=== PATIENT | female | born 1980 | race Caucasian/White ===

== ENCOUNTER → 2017-05-03 07:57 | Emergency (ER) | payer BC ==
[~2017-05-03 07:57] MED LIST: Azithromycin TAB* 250 MG PO ONE; Iohexol 300* (CONTRAST) 10 ML SDV IV ONE; Ketorolac INJ* 30 MG/ML 1 ML VIAL IV PUSH ONE; Ketorolac INJ* 30 MG/ML 1 ML VIAL ONE; NS 0.9% 1000 ML* 1,000 ML IV ONE; Neomyc/Polym/HC 1% OTIC SUSP* **OTIC LEFT EAR ONE; Ondansetron INJ* 2 MG/ML VIAL IV ONE
[2017-05-03 08:58] LABS: Hematocrit 42 % (35-47); Hemoglobin 14.3 g/dl (12.0-16.0); Mean Corpuscular HGB Conc 34 g/dl (31-36); Mean Corpuscular Hemoglobin 30 pg (27-31); Mean Corpuscular Volume 90 fL (80-97); Mean Platelet Volume 10 um3 (7.4-10.4); Red Blood Count 4.69 10^6/ul (4.0-5.4); Red Cell Distribution Width 14 % (10.5-15); White Blood Count 8.7 10^3/ul (3.5-10.8)
[2017-05-03 09:14] LABS: ALT 11 U/L (7-52); AST 17 U/L (13-39); Albumin 4.3 g/dL (3.2-5.2); Alkaline Phosphatase 53 U/L (34-104); Amylase 45 U/L (29-103); Anion Gap 6 mmol/L (2-11); Blood Urea Nitrogen 16 mg/dL (6-24); CO2 Carbon Dioxide 26 mmol/L (22-32); Calcium 9.2 mg/dL (8.6-10.3); Chloride 106 mmol/L (101-111); Creatine Kinase 85 U/L (10-223); EGFR African American 81.1 (>60); EGFR Non-African American 63.1 (>60); Globulin 2.5 g/dL (2-4); Glucose 87 mg/dL (70-100); Lipase 34 U/L (11.0-82.0); Potassium 3.8 mmol/L (3.5-5.0); Sodium 138 mmol/L (133-145); Total Protein 6.8 g/dL (6.4-8.9)
[2017-05-03 09:21] LABS: Benzodiazepine Urine Screen None Detected (None Detect)
[2017-05-03 09:28] LABS: Urine Bilirubin Negative (Negative); Urine Glucose Negative (Negative); Urine Nitrite Negative (Negative)
--- NOTE | 2017-05-03 09:28 | RAD ---
INDICATION: Syncope COMPARISON: April 16, 2016 TECHNIQUE: An AP portable view obtained at 0845 hours is submitted. FINDINGS: Bones/Soft Tissues: There are no acute bony findings. Cardiomediastinal: The cardiomediastinal silhouette is normal. Lungs: There are no infiltrates. Pleura: There are no pleural effusions. Other: None IMPRESSION: NO ACTIVE DISEASE.
[2017-05-03 09:32] LABS: Alcohol < 10 mg/dL (<10)
[2017-05-03 09:35] LABS: Urine Bacteria Absent (Absent)
[2017-05-03 09:42] LABS: TSH (Thyroid Stimulating Horm) 1.66 mcIU/mL (0.34-5.60)
--- NOTE | 2017-05-03 12:55 | RAD ---
INDICATION: Epigastric pain COMPARISON: None TECHNIQUE: Axial source images were obtained from the hemidiaphragms to the symphysis pubis following administration of oral and intravenous contrast. 85 mL Omnipaque 300 was utilized. Coronal and sagittal reconstructed images were acquired. Lung bases: The lung bases are clear. Liver: The liver is normal in size. There are no masses. There is no ductal dilatation. Gallbladder: There are no calcified gallstones. There is no evidence of wall thickening or pericholecystic fluid. Spleen: The spleen is normal in size. There are no masses. Pancreas: There is no focal pancreatic mass or ductal dilatation. Adrenal glands: There is no evidence of adrenal mass. Kidneys: The kidneys are normal in size and position. There are prompt nephrograms and there is prompt excretion bilaterally. There are no renal parenchymal masses. There is no evidence of nephrolithiasis. Adenopathy: There is no evidence of adenopathy by size criteria. Fluid collections: There are no significant free or localized fluid collections. Vessels:There are no significant atherosclerotic changes involving the aorta. There is no focal aneurysm. The iliac vessels are normal in caliber. The IVC appears normal. GI tract: There are no acute CT bowel findings. There is no obstruction. The stomach and small bowel appear normal. The lower GI tract is normal. The cecum, ileocecal valve, and terminal ileum appear normal. The appendix is visualized and appear normal. Pelvic organs: The uterus and adnexa appear normal Bladder: There are no bladder masses. Abdominal and pelvic soft tissues: The extraperitoneal abdominal and pelvic soft tissues appear normal.. Osseous structures: There are no acute osseous findings. Other: None IMPRESSION: NO ACUTE CT FINDINGS. NO MASS OR INFLAMMATORY CHANGES.
[2017-05-03 14:43] VITALS: BP 97/67
--- NOTE | 2017-05-03 22:09 | ED ---
Yaya Wallace Alfonso, scribed for Esther Bates MD on 05/03/17 at 0928 . Syncope/Near Syncope - HPI Summary HPI Summary: This patient is a 36 year old F presenting to [facility] accompanied by mother with a chief complaint of syncopal episode at 0700 this morning. She states I think this was Vasovagal and I passed out on the floor while in the bathroom and laid there for 45 minutes. She denies head trauma. Pt rates the pain 0/10 in severity. Symptoms aggravated by nothing and alleviated by spontaneous resolution. Pt reports dizziness, left ear pain, and upper abdominal pain described as taking a knife and jamming it into my stomach. Pt denies LOC, fever, constipation, sore throat, and back pain. She states she is currently experiencing her menstrual cycle. Pt just returned from vacation where she did a lot of swimming. Denies recent flights. FHx of CAD and esophageal cancer and melanoma. - History Of Current Complaint Chief Complaint: EDAbdPain Time Seen by Provider: 05/03/17 08:06 Hx Obtained From: Patient Onset/Duration: Sudden Onset - 0700 today, Lasting Minutes - 45 minutes on floor , Resolved Timing: Constant Context: Unwitnessed Activity At Onset: At Rest Associated Head Trauma: No Aggravating Factor(s): Nothing Alleviating Factor(s): Spontaneous Resolution Associated Signs And Symptoms: Other - Positive dizziness, left ear pain, and upper abdominal pain; Negative LOC, fever, constipation, sore throat, and back pain. Frequency: Episodes x___ - 1, Episodes Lasting ____ (in Mins/Days/Weeks/Years) - 45 minutes - Allergies/Home Medications Allergies/Adverse Reactions: Allergies Allergy/AdvReac Type Severity Reaction Status Date / Time NARCOTIC SENSITIVE Allergy Severe SENSITIVE Uncoded 05/03/17 10:32 TO NARCOTICS - VOMITING PMH/Surg Hx/FS Hx/Imm Hx Previously Healthy: Yes Endocrine/Hematology History: Denies: Hx Diabetes, Hx Thyroid Disease Cardiovascular History: Denies: Hx Hypertension Respiratory History: Denies: Hx Asthma, Hx Chronic Obstructive Pulmonary Disease (COPD) GI History: Denies: Hx Ulcer - Cancer History Hx Chemotherapy: No Hx Radiation Therapy: No Infectious Disease History: No Infectious Disease History: Denies: Hx Clostridium Difficile, Hx Hepatitis, Hx Human Immunodeficiency Virus (HIV), Hx of Known/Suspected MRSA, Hx Shingles, Hx Tuberculosis, Traveled Outside the [place] in Last 30 Days - Family History Known Family History: Positive: Cardiac Disease, Other - esophageal cancer - Social History Occupation: Employed Full-time Lives: With Family Alcohol Use: Occasionally Substance Use Type: Reports: None Smoking Status (MU): Never Smoked Tobacco Review of Systems Negative: Fever Positive: Ear Ache - Left. Negative: Sore Throat Cardiovascular: Negative Respiratory: Negative Positive: Abdominal Pain - Upper, Other - Negative constipation Positive: Other - Negative back pain or neck pain Neurological: Other - Positive dizziness; negative LOC Positive: Syncope All Other Systems Reviewed And Are Negative: Yes Physical Exam Triage Information Reviewed: Yes Vital Signs On Initial Exam: Initial Vitals Temp Pulse Resp BP 97.4 F 73 20 109/70 05/03/17 07:58 05/03/17 07:58 05/03/17 07:58 05/03/17 07:58 Vital Signs Reviewed: Yes Appearance: Positive: Well-Nourished, Ill-Appearing, Pain Distress Skin: Positive: Warm, Skin Color Reflects Adequate Perfusion Head/Face: Positive: Normal Head/Face Inspection Eyes: Positive: Other: - Left ear erythematous and swollen canal. Left ear painful with movement. ENT: Positive: Normal ENT inspection, TM red - left TM, and left canal swollen and painful Neck: Positive: Supple, Nontender, No Lymphadenopathy Respiratory/Lung Sounds: Positive: Clear to Auscultation, Breath Sounds Present Cardiovascular: Positive: RRR, Pulses are Symmetrical in both Upper and Lower Extremities. Negative: Murmur, Leg Edema Left, Leg Edema Right Abdomen Description: Positive: No Organomegaly, Soft, Other: - Tender suprapubic with no rebound.. Negative: Distended, Guarding, McBurney's Point Tenderness, Peritoneal Signs Bowel Sounds: Positive: Present Musculoskeletal: Positive: Strength/ROM Intact. Negative: Yvette Sign Left, Yvette Sign Right, Edema Left, Edema Right Neurological: Positive: Sensory/Motor Intact, Alert, Oriented to Person Place, Time, CN Intact II-III, Speech Normal. Negative: Focal Deficit @, Slurred Speech Psychiatric: Positive: Normal - Mercedes Coma Scale Coma Scale Total: 15 Diagnostics - Vital Signs Vital Signs Temp Pulse Resp BP Pulse Ox 05/03/17 09:18 80 106/77 05/03/17 08:52 98.5 F 63 16 115/71 100 05/03/17 08:30 66 14 115/71 100 05/03/17 08:17 66 87 05/03/17 08:16 113/72 05/03/17 07:58 97.4 F 73 20 109/70 - Laboratory Lab Results: Lab Results 05/03/17 05/03/17 05/03/17 Range/Units 08:42 08:42 08:42 WBC 8.7 (3.5-10.8) 10^3/ul RBC 4.69 (4.0-5.4) 10^6/ul Hgb 14.3 (12.0-16.0) g/dl Hct 42 (35-47) % MCV 90 (80-97) fL MCH 30 (27-31) pg MCHC 34 (31-36) g/dl RDW 14 (10.5-15) % Plt Count 167 (150-450) 10^3/ul MPV 10 (7.4-10.4) um3 Neut % (Auto) 76.9 (38-83) % Lymph % (Auto) 15.3 L (25-47) % Wright % (Auto) 6.6 (1-9) % Eos % (Auto) 0.7 (0-6) % Baso % (Auto) 0.5 (0-2) % Absolute Neuts (auto) 6.7 (1.5-7.7) 10^3/ul Absolute Lymphs (auto) 1.3 (1.0-4.8) 10^3/ul Absolute Monos (auto) 0.6 (0-0.8) 10^3/ul Absolute Eos (auto) 0.1 (0-0.6) 10^3/ul Absolute Basos (auto) 0 (0-0.2) 10^3/ul Absolute Nucleated RBC 0 10^3/ul Nucleated RBC % 0 Sodium 138 (133-145) mmol/L Potassium 3.8 (3.5-5.0) mmol/L Chloride 106 (101-111) mmol/L Carbon Dioxide 26 (22-32) mmol/L Anion Gap 6 (2-11) mmol/L BUN 16 (6-24) mg/dL Creatinine 1.00 H (0.51-0.95) mg/dL Est GFR ( Amer) 81.1 (>60) Est GFR (Non-Af Amer) 63.1 (>60) BUN/Creatinine Ratio 16.0 (8-20) Glucose 87 (70-100) mg/dL Lactic Acid 1.1 (0.5-2.0) mmol/L Calcium 9.2 (8.6-10.3) mg/dL Magnesium 2.0 (1.9-2.7) mg/dL Total Bilirubin 0.70 (0.2-1.0) mg/dL AST 17 (13-39) U/L ALT 11 (7-52) U/L Alkaline Phosphatase 53 (34-104) U/L Total Creatine Kinase 85 (10-223) U/L Troponin I 0.00 (<0.04) ng/mL Total Protein 6.8 (6.4-8.9) g/dL Albumin 4.3 (3.2-5.2) g/dL Globulin 2.5 (2-4) g/dL Albumin/Globulin Ratio 1.7 (1-3) Amylase 45 (29-103) U/L Lipase 34 (11.0-82.0) U/L TSH Pending Beta HCG, Quant < 0.60 mIU/mL Urine Opiates Screen (None Detect) Ur Barbiturates Screen (None Detect) Ur Phencyclidine Scrn (None Detect) Ur Amphetamines Screen (None Detect) U Benzodiazepines Scrn (None Detect) Urine Cocaine Screen (None Detect) U Cannabinoids Screen (None Detect) Serum Alcohol Pending 05/03/17 Range/Units 08:42 WBC (3.5-10.8) 10^3/ul RBC (4.0-5.4) 10^6/ul Hgb (12.0-16.0) g/dl Hct (35-47) % MCV (80-97) fL MCH (27-31) pg MCHC (31-36) g/dl RDW (10.5-15) % Plt Count (150-450) 10^3/ul MPV (7.4-10.4) um3 Neut % (Auto) (38-83) % Lymph % (Auto) (25-47) % Wright % (Auto) (1-9) % Eos % (Auto) (0-6) % Baso % (Auto) (0-2) % Absolute Neuts (auto) (1.5-7.7) 10^3/ul Absolute Lymphs (auto) (1.0-4.8) 10^3/ul Absolute Monos (auto) (0-0.8) 10^3/ul Absolute Eos (auto) (0-0.6) 10^3/ul Absolute Basos (auto) (0-0.2) 10^3/ul Absolute Nucleated RBC 10^3/ul Nucleated RBC % Sodium (133-145) mmol/L Potassium (3.5-5.0) mmol/L Chloride (101-111) mmol/L Carbon Dioxide (22-32) mmol/L Anion Gap (2-11) mmol/L BUN (6-24) mg/dL Creatinine (0.51-0.95) mg/dL Est GFR ( Amer) (>60) Est GFR (Non-Af Amer) (>60) BUN/Creatinine Ratio (8-20) Glucose (70-100) mg/dL Lactic Acid (0.5-2.0) mmol/L Calcium (8.6-10.3) mg/dL Magnesium (1.9-2.7) mg/dL Total Bilirubin (0.2-1.0) mg/dL AST (13-39) U/L ALT (7-52) U/L Alkaline Phosphatase (34-104) U/L Total Creatine Kinase (10-223) U/L Troponin I (<0.04) ng/mL Total Protein (6.4-8.9) g/dL Albumin (3.2-5.2) g/dL Globulin (2-4) g/dL Albumin/Globulin Ratio (1-3) Amylase (29-103) U/L Lipase (11.0-82.0) U/L TSH Beta HCG, Quant mIU/mL Urine Opiates Screen None detected (None Detect) Ur Barbiturates Screen None detected (None Detect) Ur Phencyclidine Scrn None detected (None Detect) Ur Amphetamines Screen None detected (None Detect) U Benzodiazepines Scrn None detected (None Detect) Urine Cocaine Screen None detected (None Detect) U Cannabinoids Screen None detected (None Detect) Serum Alcohol Result Diagrams: 05/03/17 08:42 05/03/17 08:42 Lab Statement: Any lab studies that have been ordered have been reviewed, and results considered in the medical decision making process. - Radiology CXR Radiology Interpretation Completed By: Radiologist - No active disease - CT CT A/P CT Interpretation Completed By: Radiologist - NO ACUTE CT FINDINGS. NO MASS OR INFLAMMATORY CHANGES. - EKG 0814 Cardiac Rate: NL - BPM 63 EKG Rhythm: Sinus Rhythm EKG Interpretation: Normal IV and AV conduction times. Normal QTc. Normal axis. EKG Comparison: Other - No prior EKG to compare. Re-Evaluation - Re-Evaluation First Eval Re-Evaluation Time: 14:23 Change: Improved - Pt sx improved in the ED course. Reviewed labs with pt. She understands and agrees with discharge plan. Course/Dx Assessment/Plan: 36 year old F presents to the ED with a CC of syncopal episode at 0700 this morning. She states I think this was Vasovagal and I passed out on the floor and laid there for 45 minutes. She denies head trauma. Pt reports dizziness, left ear pain, and upper abdominal pain. Pt denies LOC, fever, constipation, sore throat, and back pain. CXR reveals no active disease. CT A/P reveals NO ACUTE CT FINDINGS. NO MASS OR INFLAMMATORY CHANGES. An EKG reveals NSR. Blood work shows Lymph % 15.3, INR 0.84, and APTT 25. UA shows blood 2+, and squamous epith cells. Patient will be discharged with treatment for left OM and Left OE, and nonspecific abdominal pain and follow up from Dr. Davis ( PCP). Pt is agreeable with this plan. Allergies noted. Pt medications reviewed this visit. - Diagnoses Differential Diagnosis/HQI/PQRI: Positive: Dysrhythmia, Hypovolemia, Metabolic Reaction, Medication Reaction, Vasovagal Episode, Other - vertigo Provider Diagnoses: Left otitis externa, Left otitis media, Abdominal pain, Syncope Discharge - Discharge Plan Condition: Stable Disposition: HOME Prescriptions: Azithromycin TAB* [Zithromax TAB (Z-DOUG) 250 mg #6 tabs] 250 mg PO DAILY #4 tab Patient Education Materials: Otitis Externa (ED), Otitis Media (ED), Abdominal Pain (ED) Forms: *Work Release Referrals: Nathanael Davis MD [Primary Care Provider] - 2 Days Additional Instructions: RETURN TO THE EMERGENCY DEPARTMENT FOR ANY NEW OR WORSENING SYMPTOMS. The documentation as recorded by the Yaya morse Alfonso accurately reflects the service I personally performed and the decisions made by , Esther Bates MD.
== END | disposition home or self-care (01) ==
LOC: ED 07:57
DX: H60.92 Unspecified otitis externa, left ear (principal); H66.92 Otitis media, unspecified, left ear; R55 Syncope and collapse; R10.9 Unspecified abdominal pain
CPT/HCPCS: 36415; 71010; 74177; 80053; 80307; 80320; 81003; 81015; 82150; 82550; 83605; 83690; 83735; 84443; 84484; 84702; 85025; 85379; 85610; 85730; 87086; 93005; 96361; 96374; 96375; 99284; A9270-GY; G0480; J1885; J2405; Q9967

== ENCOUNTER 2019-10-20 07:32 | Emergency (ER) | payer OTHER ==
[2019-10-20 07:50] VITALS: BP 104/70
--- NOTE | 2019-10-20 08:26 | UC ---
Throat Pain/Nasal Cedric HPI - HPI Summary HPI Summary: 3 DAYS OF SORE THROAT, PAIN WITH SWALLOWING, CHILLS, SUBJECTIVE FEVERS, HEADACHE , BODY ACHES AND FATIGUE. MILD COUGH. IS CONCERNED ABOUT STREP. UP-TO-DATE FLU SHOT. - History of Current Complaint Chief Complaint: UCRespiratory Stated Complaint: SORE THROAT Time Seen by Provider: 10/20/19 07:42 Hx Obtained From: Patient Hx Last Menstrual Period: 09/24/19 Onset/Duration: Gradual Onset, Lasting Days, Still Present Severity: Moderate Pain Intensity: 2 Pain Scale Used: 0-10 Numeric Cough: Nonproductive Associated Signs & Symptoms: Positive: Nasal Discharge, Fever - SUBJECTIVE - Allergies/Home Medications Allergies/Adverse Reactions: Allergies Allergy/AdvReac Type Severity Reaction Status Date / Time NARCOTIC SENSITIVE Allergy Severe SENSITIVE Uncoded 10/20/19 07:46 TO NARCOTICS - VOMITING Home Medications: Home Medications Acetaminophen TAB* [Tylenol TAB*] 650 mg PO Q4H PRN 10/20/19 [History Confirmed 10/20/19] Diphenhydra/Phenyleph/Acetamin [Theraflu Expressmax Cold Nt Lq] 1 ml PO DAILY PRN 10/20/19 [History Confirmed 10/20/19] Ibuprofen TAB* [Advil TAB*] 200 mg PO Q6H PRN 10/20/19 [History Confirmed ] PMH/Surg Hx/FS Hx/Imm Hx Psychological History: Depression - Surgical History Surgical History: None - Family History Known Family History: Positive: Cardiac Disease, Other - esophageal cancer - Social History Alcohol Use: Rare Substance Use Type: None Smoking Status (MU): Never Smoked Tobacco Review of Systems All Other Systems Reviewed And Are Negative: Yes Constitutional: Positive: Fever - SUBJECTIVE, Chills, Fatigue ENT: Positive: Sore Throat, Nasal Discharge Respiratory: Positive: Cough Cardiovascular: Positive: Negative Gastrointestinal: Positive: Nausea Musculoskeletal: Positive: Myalgia Neurological: Positive: Headache Physical Exam Triage Information Reviewed: Yes Appearance: Well-Appearing, No Pain Distress, Well-Nourished Vital Signs: Initial Vital Signs Temp 98.7 F 10/20/19 07:41 Pulse 79 10/20/19 07:41 Resp 16 10/20/19 07:41 BP 104/70 10/20/19 07:41 Pulse Ox 99 10/20/19 07:41 Laboratory Tests 10/20/19 10/20/19 07:55 08:30 Influenza B (Rapid) Positive A Group A Strep Rapid Negative Vital Signs Reviewed: Yes Eyes: Positive: Conjunctiva Clear ENT: Positive: Hearing grossly normal, Pharynx normal, TMs normal Neck: Positive: Supple, Nontender, No Lymphadenopathy Respiratory Exam: Normal Cardiovascular Exam: Normal Abdomen Description: Positive: Soft Musculoskeletal: Positive: No Edema Neurological: Positive: Alert Psychological: Positive: Age Appropriate Behavior Skin: Negative: Rashes Throat Pain/Nasal Course/Dx - Course Course Of Treatment: SWAB POSITIVE FOR INFLUENZA B. PATIENT DECLINES TAMIFLU TODAY. ENCOURAGED REST , HYDRATION, OTC MEDICATIONS NEEDED. FOLLOW-UP IF NOT IMPROVING EXPECTED. - Differential Dx/Diagnosis Provider Diagnosis: Influenza B Discharge ED - Sign-Out/Discharge Documenting (check all that apply): Patient Departure All imaging exams completed and their final reports reviewed: No Studies - Discharge Plan Condition: Stable Disposition: HOME Patient Education Materials: Influenza (ED) Referrals: Nathanael Daivs MD [Primary Care Provider] - If Needed Additional Instructions: SWAB POSITIVE FOR INFLUENZA B. OTC MEDS NEEDED FOR FEVER, BODY ACHES. STAY WELL HYDRATED AND RESTED. SEEK FOLLOW-UP IF YOU ARE NOT IMPROVING EXPECTED. - Billing Disposition and Condition Condition: STABLE Disposition: Home
[2019-10-20 08:33] LABS: Influenza B Molecular POSITIVE (Negative)
== END 2019-10-20 09:03 | disposition home or self-care (01) ==
LOC: UCEAST 07:32
DX: J11.1 Influenza due to unidentified influenza virus with other respiratory manifestations (principal); Z88.5 Allergy status to narcotic agent
CPT/HCPCS: 87651; 99211; G0463